=== PATIENT | female | born 1995 | race African-American/Black ===

== ENCOUNTER 2020-02-14 15:23 | Emergency (ER) | payer SELFPAY ==
[2020-02-14 15:40] VITALS: BP 112/65; PULSE 113; RESP 16; TEMP 37.2; O2SAT 99
--- NOTE | 2020-02-14 16:30 | ED.GENADULT ---
HPI - General Adult General Chief complaint: Extremity Injury, Upper Stated complaint: Fell Right wrist/lft hip pain History of Present Illness HPI narrative: Patient is a 24-year-old morbidly obese -[place] female who presents to the urgent care for evaluation of a fall injury that occurred yesterday. She states she slipped on mud and fell onto bilateral knees. She is now complaining of right wrist pain and left hip pain. She denies using Tylenol, ibuprofen, rest, elevation, ice, or compression therapy. Pain improves with sitting and worsens with movement. Pertinent negatives: fever, chills, sweats, change in appetite, poor p.o. intake, malaise, calf tenderness, skin color changes, rash, warmth, swelling, numbness, tingling, loss of sensation, deformity, decreased range of motion, weakness, difficulty with ambulation/coordination, nausea, vomiting, lymphadenopathy, shortness of breath, chest pain, heart palpitations, and heart murmur. Related Data Home Medications Medication Instructions Recorded Confirmed Unknown Allergy Medication 02/14/20 Allergies Allergy/AdvReac Type Severity Reaction Status Date / Time Penicillins Allergy Hives Verified 02/14/20 16:03 Review of Systems Review of Systems: Narrative: All other systems reviewed and are negative PMFSH Social History Social History Gender identity (if verbalized by the patient): Female Comments I have reviewed and agree with the patient's past medical, surgical, social, and family hx as documented by the RN. There is no relevant family history pertinent to the presenting complaint. Exam Narrative: Exam Narrative: GENERAL: Well-appearing, well-nourished, and in no acute distress. HEAD: Normocephalic, atraumatic. NECK: Supple. No Lymphadenopathy or nuchal rigidity appreciated. CHEST: Bilateral lung brooks are clear to auscultation. No respiratory distress. No evidence of cough or pleuritic cp upon examination. HEART: Regular rate and rhythm. No murmur, gallop, or rub heard. EXTREMITIES: Moderate generalized pain elicited to the right wrist with palpation and all active and passive range of motion. No evidence of pain in left hip with all issues active and passive ROM. No evidence of point tenderness. No evidence of injury, decreased ROM, swelling, cyanosis, hematoma, laceration, abrasion, deformity, rash, or puncture. No evidence of dislocation, ligament laxity, effusion, or pain at rest. Pulses palpable at 2+, strength 5/5, and cap refill < 3 seconds in affected extremity. DTRs normal. Gait normal. SKIN: Warm, dry, no rash. NEURO: No focal deficits. Alert and oriented x3. SPECIAL OBSERVATIONS: Smiling. Laughing. Course Vital Signs Vital signs: Vital Signs Temperature 98.9 F 02/14/20 15:40 Pulse Rate 113 H 02/14/20 15:40 Respiratory Rate 16 02/14/20 15:40 Blood Pressure 112/65 02/14/20 15:40 Pulse Oximetry 99 02/14/20 15:40 Temperature 98.9 F 02/14/20 15:40 Pulse Rate 113 H 02/14/20 15:40 Respiratory Rate 16 02/14/20 15:40 Blood Pressure 112/65 02/14/20 15:40 Pulse Oximetry 99 02/14/20 15:40 Procedures Orthopedic Splinting/Casting Injury #1: Splinting/Casting Date: 02/14/20 Splinting/Casting Time: 16:40 Side: right Upper Extremity Injury Location: wrist Upper Extremity Immobilizer: Tejinder wrap Pre-Procedure Neuro Vascular Exam: normal Post-Procedure Neuro Vascular Exam: normal Medical Decision Making Differential Diagnosis Differential Diagnosis: Sprain, strain, cellulitis, open fracture, closed fracture, gout Medical Records Medical records reviewed: Yes I reviewed the patient's medical records. Vital Signs Vital Signs: Vital Signs Temperature 98.9 F 02/14/20 15:40 Pulse Rate 113 H 02/14/20 15:40 Respiratory Rate 16 02/14/20 15:40 Blood Pressure 112/65 02/14/20 15:40 Pulse Oximetry 99 0
== END 2020-02-14 16:42 | disposition home or self-care (01) ==
PROVIDERS: Emergency Provider Nurse Practitioner Family
DX: S63.501A Unspecified sprain of right wrist, initial encounter (principal); S66.911A Strain of unspecified muscle, fascia and tendon at wrist and hand level, right hand, initial encounter; W01.0XXA Fall on same level from slipping, tripping and stumbling without subsequent striking against object, initial encounter; M25.552 Pain in left hip; K21.9 Gastro-esophageal reflux disease without esophagitis
CPT/HCPCS: 99202; G0463